=== PATIENT | female | born 2000 | race Caucasian/White ===

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

== ENCOUNTER 2024-01-19 16:03 | Outpatient (CLI) | payer BC, SELFPAY ==
[2024-01-24 12:15] LABS: Mycoplasma genitalium NAA Negative (Negative); Mycoplasma hominis NAA Negative (Negative); Ureaplasma spp NAA Positive (Negative)
[2024-01-24 20:36] LABS: Atopobium vaginae High - 2 Score (.); BVAB2 Low - 0 Score (.); Candida albicans NAA Negative (Negative); Candida glabrata Negative (Negative); Chlamydia Trachomatis NAA Negative (Negative); HSV 1 NAA Negative (Negative); HSV 2 NAA Negative (Negative); Megasphaera 1 Low - 0 Score (.); Neisseria gonorrhoeae NAA Negative (Negative); Trich vag NAA Negative (Negative)
== END 2024-01-19 23:59 | disposition home or self-care (01) ==
LOC: LAB.DROPOF 16:03
PROVIDERS: PCP Urology; Visit Provider Urology
DX: N39.0 Urinary tract infection, site not specified (principal); R31.9 Hematuria, unspecified; A49.3 Mycoplasma infection, unspecified site; R87.5 Abnormal microbiological findings in specimens from female genital organs
CPT/HCPCS: 87086; 87491; 87529; 87563; 87591; 87661; 87798; 87801

== ENCOUNTER 2024-01-22 15:25 | Outpatient (CLI) | payer BC, SELFPAY ==
--- NOTE | 2024-01-22 15:25 | US_ITS ---
FINAL REPORT CLINICAL HISTORY: UTI FINDINGS: ULTRASOUND URINARY BLADDER Limited sonographic images of the urinary bladder were obtained. No bladder masses are identified. Prevoid bladder volume is 353 mL. There is minimal postvoid residual of 16 mL. Bilateral ureteral jets are identified. IMPRESSION: Minimal postvoid residual. Reviewed, Interpreted and Dictated by Noman Kaufman MD Transcribed by Caro Peralta Authenticated and [facility][1]
--- NOTE | 2024-01-22 15:25 | US_ITS ---
FINAL REPORT CLINICAL HISTORY: Recurrent urinary tract infections. FINDINGS: RENAL ULTRASOUND Ultrasound images of the kidneys were obtained. The right kidney measures 10.7 cm in length. It is normal echogenicity. There is no mass, stone or hydronephrosis. The left kidney is suboptimally visualized and measures 9.1 cm in length. It is normal echogenicity. There is no mass, stone or hydronephrosis. Calcified granulomas are seen in the spleen. IMPRESSION: Normal renal ultrasound. Reviewed, Interpreted and Dictated by Noman Kaufman MD Transcribed by Caro Peralta Authenticated and [facility]
== END 2024-01-22 23:59 | disposition home or self-care (01) ==
PROVIDERS: PCP Nurse Practitioner Family; Visit Provider Urology
DX: N39.0 Urinary tract infection, site not specified (principal); R31.9 Hematuria, unspecified
CPT/HCPCS: 76770; 76857

== ENCOUNTER 2024-02-16 15:36 | Outpatient (CLI) | payer BC, SELFPAY ==
[2024-02-16 15:35] LABS: Microscopic, Urine URINE MICROSCOPIC (MICROSCOPIC)
[2024-02-16 15:52] LABS: Appearance,Urine CLEAR (Clear); Bilirubin,Urine Negative (Negative); Blood, Urine 1+ (Negative); Color,Urine YELLOW (Yellow); Glucose,Urine (UA) Negative (Negative); Ketones,Urine Negative (Negative); Leukocyte Esterase,Urine Negative (Negative); Nitrate,Urine Negative (Negative); Protein,Urine 2+ (Negative); Specific Gravity, Urine >= 1.030 (1.005-1.030); Urobilinogen,Urine 0.2 EU/dl (0.2)
[2024-02-16 16:17] LABS: Bacteria,Urine Trace /lpf; RBC,Urine Occasional #/hpf (0-3); WBC,Urine Occasional #/hpf (0-3)
== END 2024-02-16 23:59 | disposition home or self-care (01) ==
LOC: LAB.DROPOF 15:36
PROVIDERS: PCP Urology; Visit Provider Urology
DX: N39.0 Urinary tract infection, site not specified (principal); R31.9 Hematuria, unspecified; R30.0 Dysuria
CPT/HCPCS: 81001; 87086

== ENCOUNTER 2024-04-05 16:22 | Outpatient (CLI) | payer BC, SELFPAY ==
[2024-04-05 16:22] LABS: Microscopic, Urine URINE MICROSCOPIC (MICROSCOPIC)
[2024-04-05 17:43] LABS: Appearance,Urine CLEAR (Clear); Bilirubin,Urine Negative (Negative); Blood, Urine 1+ (Negative); Color,Urine YELLOW (Yellow); Glucose,Urine (UA) Negative (Negative); Ketones,Urine Negative (Negative); Leukocyte Esterase,Urine Negative (Negative); Nitrate,Urine Negative (Negative); PH,Urine 5.5 (5.0-8.5); Protein,Urine TRACE (Negative); Specific Gravity, Urine 1.025 (1.005-1.030); Urobilinogen,Urine 0.2 EU/dl (0.2)
[2024-04-05 18:25] LABS: RBC,Urine Occasional #/hpf (0-3)
[2024-04-05 18:26] LABS: Bacteria,Urine Trace /lpf
== END 2024-04-05 23:59 | disposition home or self-care (01) ==
LOC: LAB.DROPOF 16:22
PROVIDERS: PCP Urology; Visit Provider Urology
DX: N39.0 Urinary tract infection, site not specified (principal); R31.9 Hematuria, unspecified
CPT/HCPCS: 81001

== ENCOUNTER 2025-09-22 13:24 | Emergency (ER) | payer BC, SELFPAY ==
[2025-09-22 13:25] VITALS: BP 103/63; PULSE 75; RESP 20; TEMP 36.6; O2SAT 99
--- NOTE | 2025-09-22 13:27 | ED_ITS ---
Discharge Plan Disposition Patient Disposition: Home, Self-Care Condition: Good Prescriptions Prescriptions: New oxycodone 5 mg tablet 5 mg PO Q8H PRN (Reason: pain) Qty: 7 0RF No Action nitrofurantoin macrocrystal 100 mg capsule 100 mg PO DAILY 30 Days Qty: 30 6RF Rx Instructions: Take one each day of sexual intercourse. Referrals Follow up/Referrals: Jeaneth Addison APRN [Primary Care Provider, Medical] - See instructions Ayush Molina DO [Staff Physician, Orthopedics] - See instructions Activity Restrictions/Add. Instructions Additional Instructions/Restrictions: You were evaluated on an emergency basis. It is very important that you follow- up with your primary care provider and any specialist who we discussed within the next 2 days in order to better assess your health more comprehensively. For example, incidental findings on imaging or laboratory results that were performed today may be discovered, which do not require immediate medical care, but may impact your health in the future. If your symptoms worsen or persist, please return to the emergency department immediately for reassessment. Take all medications as prescribed. In queue for allowing me to participate in your health care, and I hope you feel better soon. 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 Patient states she took 2 ibuprofen prior to arrival. States she is having trouble walking on her leg due to the pain. Related Data Previous Rx's ?Medication ?Instructions ?Recorded nitrofurantoin macrocrystal 100 mg 100 mg PO DAILY 30 days #30 caps 11/01/24 capsule oxycodone 5 mg tablet 5 mg PO Q8H PRN pain #7 tabs 09/22/25 Allergies Allergy/AdvReac Type Severity Reaction Status Date / Time No Known Allergies Allergy Verified 11/01/24 13:01 PFSH <Katty Negro - Last Filed: 09/22/25 14:49> [facility] Disclaimer: The information contained in this section may have been updated after the patient was seen, as this information can be updated by other users. Surgical History History of colonoscopy Social History Smoking Status: Never smoker alcohol intake: never current occupational status: other Travel in the last 8 weeks?: None <Katty Negro - Last Filed: 09/22/25 14:49> ROS Obtained: Yes other Musculoskeletal Musculoskeletal: Reports arthralgias Integumentary/Breasts Skin/Breast: Reports other (Abrasion to left knee) Physical Exam <Katty Negro - Isaiah Filed: 09/22/25 14:49> Narrative Physical exam: General: Awake, aware, in no acute distress HEENT: Normocephalic, no evidence of trauma CV: RRR, no murmurs, rubs, or gallops Pulm: CTA bilaterally with no rhonchi, rales, wheezes ABD: Nontender, no swelling, guarding, or rebound tenderness Psych, appropriate mood and affect Musculoskeletal: Patient reports tenderness on palpation of the left patella. There is a superficial small abrasion to her left knee as well. No obvious deformity. Stations intact with 2+ pulses. Patient with limited range of motion due to pain. General General appearance: alert Respiratory Respiratory exam: Present normal lung sounds bilaterally Cardiovascular Cardiovascular exam: Present regular rate Neurological Exam Neurological exam: Present alert Medical Decision Making <Katty Colon Filed: 09/22/25 14:49> Medical Records Screening: Per USPSTF and CDC recommendations, given the prevalence of disease in our region, it is our hospital?s policy to screen for HIV and viral Hepatitis for all patients aged 18 and over and those with ongoing risk factors. Ruben Inquiry Pt receiving controlled substance: Yes Ruben was queried for this patient: Yes Risks and benefits of using a controlled substance: were discussed with pt by me Vital Signs: 09/22/25 13:25 09/22/25 14:55 Temperature 97.8 F 98.1 F Temperature Source Oral Pulse Rate 71 Pulse Rate [Left Radial] 75 Respiratory Rate 20 20 Blood Pressure 110/60 Blood Pressure [Right Arm] 103/63 L Blood Pressure Mean [Right Arm] 76 02 Sat by Pulse Oximetry 99 Oxygen Delivery Method Room Air Room Air Orders (Tests/Meds): ED MEDICATIONS Discontinued Medications Generic Name Dose Route Start Last Admin Trade Name Mckay PRN Reason Stop Dose Admin Acetaminophen 1,000 mg 09/22/25 13:44 09/22/25 14:07 Acetaminophen 500mg Tab PO 09/22/25 13:45 1,000 mg ONCE ONE Administration ORDERS Category Date Time Status XR knee LT 3V Stat Exams 09/22/25 13:44 Completed Medical Decision Narrative: Initial impression of presenting illness: 25-year-old female presents emergency department with complaints of pain to 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 she reports that she is taken to ibuprofen prior to arrival without relief of symptoms. She reports that she has had difficulty putting weight on her leg since her fall. Differential diagnosis includes but is not limited to: Contusion, hematoma, abrasion, fracture, meniscus injury, ligament injury Patient arrives hemodynamically stable, afebrile, without respiratory distress with vital signs interpreted by myself. Initial physical exam reveals tenderness to palpation of left patella. There is a small superficial abrasion to this area as well. No obvious deformity. Minimal swelling. Sensations intact with 2+ pulses in all extremities. Initial diagnostic plan: Ice pack and Tylenol for pain control, x-rays Results from initial plan were reviewed and interpreted by myself, pertinent positives include: X-rays show a fracture of patient's left patella. Interventions in the ED: Patient was given Tylenol for pain control as well as fitted with a knee immobilizer and given crutches. Patient was made aware of the results and the findings, upon reevaluation patient has remained stable throughout stay, symptoms remained stable. Upon reevaluation patient appears to be resting more comfortably in her bed. Patient is able to fully extend her knee. Patient was able to ambulate in the hallway with crutches. Consultation/discussion with other physicians: Spoke with orthopedic provider Dr. Molina regarding patient's presenting complaint and x-ray findings. He recommended placing patient in a knee immobilizer with crutches. He states patient can weight-bear as tolerated. Disposition: Reviewed finding today's workup with patient informed her that she did fracture her patella. Reviewed Dr. Molina's recommendations. Advised her that she can continue with Tylenol and ibuprofen as needed for pain control. Advised patient that we will also send a prescription for oxycodone to help with any breakthrough pain. Recommended that she contact Dr. Molina's office to sched ule close outpatient follow-up. Instructed her to return to the emergency department any new or worsening symptoms. Patient is agreeable to plan of care. Patient made aware of findings and had a detailed discussion with symptomatic care and return precautions, patient voiced understanding. <Maylin Abdul MD - Last Filed: 09/24/25 16:05> Vital Signs: 09/22/25 13:25 09/22/25 14:55 Temperature 97.8 F 98.1 F Temperature Source Oral Pulse Rate 71 Pulse Rate [Left Radial] 75 Respiratory Rate 20 20 Blood Pressure 110/60 Blood Pressure [Right Arm] 103/63 L Blood Pressure Mean [Right Arm] 76 02 Sat by Pulse Oximetry 99 Oxygen Delivery Method Room Air Room Air Orders (Tests/Meds): ED MEDICATIONS Discontinued Medications Generic Name Dose Route Start Last Admin Trade Name Freq PRN Reason Stop Dose Admin Acetaminophen 1,000 mg 09/22/25 13:44 09/22/25 14:07 Acetaminophen 500mg Tab PO 09/22/25 13:45 1,000 mg ONCE ONE Administration ORDERS Category Date Time Status XR knee LT 3V Stat Exams 09/22/25 13:44 Completed Medical Decision Narrative: Initial impression of presenting illness: 25-year-old female presents emergency department with complaints of pain to 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 she reports that she is taken to ibuprofen prio r to arrival without relief of symptoms. She reports that she has had difficulty putting weight on her leg since her fall. Differential diagnosis includes but is not limited to: Contusion, hematoma, abrasion, fracture, meniscus injury, ligament injury Patient arrives hemodynamically stable, afebrile, without respiratory distress with vital signs interpreted by myself. Initial physical exam reveals tenderness to palpation of left patella. There is a small superficial abrasion to this area as well. No obvious deformity. Minimal swelling. Sensations intact with 2+ pulses in all extremities. Initial diagnostic plan: Ice pack and Tylenol for pain control, x-rays Results from initial plan were reviewed and interpreted by myself, pertinent positives include: X-rays show a fracture of patient's left patella. Interventions in the ED: Patient was given Tylenol for pain control as well as fitted with a knee immobilizer and given crutches. Patient was made aware of the results and the findings, upon reevaluation patient has remained stable throughout stay, symptoms remained stable. Upon reevaluation patient appears to be resting more comfortably in her bed. Patient is able to fully extend her knee. Patient was able to ambulate in the hallway with crutches. Consultation/discussion with other physicians: Spoke with orthopedic provider Dr. Molina regarding patient's presenting complaint and x-ray findings. He recommended placing patient in a knee immobilizer with crutches. He states patient can weight-bear as tolerated. Disposition: Reviewed finding today's workup with patient informed her that she did fracture her patella. Reviewed Dr. Molina's recommendations. Advised her that she can continue with Tylenol and ibuprofen as needed for pain control. Advised patient that we will also send a prescription for oxycodone to help with any breakthrough pain. Recommended that she contact Dr. Molina's office to schedule close outpatient follow-up. Instructed her to return to the emergency department any new or worsening symptoms. Patient is agreeable to plan of care. Patient made aware of findings and had a detailed discussion with symptomatic care and return precautions, patient voiced understanding. I was consulted by the YANA, and we discussed the complexity of problems being addressed. I approved the treatment and management plan for this patient's care in the emergency department, thus performing a substantial portion of the medical decision making. Maylin Abdul MD Critical Care <Katty Negro - Last Filed: 09/22/25 14:49> Critical Care Time Critical Care Time: No
--- NOTE | 2025-09-22 13:44 | XR_ITS ---
FINAL REPORT CLINICAL HISTORY: fall, lt knee pain FINDINGS: AP, lateral and oblique views of the left knee were obtained. There is no prior exam for comparison. There is a comminuted fracture of the patella with no significant displacement. No other fracture identified. The joint space is preserved. The soft tissues are normal. There is a large joint effusion. IMPRESSION: Comminuted patellar fracture with large joint effusion. Reviewed, Interpreted and Dictated by Dena Burris MD Transcribed by Radha Lindsay Authenticated and . [facility]
--- OUTSIDE RECORDS SUMMARY | 2025-09-22 13:54 | XMS_ITS | Clinical Summary ---
Author Organization [facility] [place] [address] Care Team Providers Care Senior Manager [employer] Name Role Phone Unavailable Primary Care Provider Unavailabl e Encounters Date Type Department Care Team Description 09/08/2025 Telephone [place] [address] Jensen Perez MD New Patient Heme (New Pt Referred by: Jeffy Decker DX: Easy bruising, Spontaneous ecchymoses) from Last 3 Months Social History Tobacco Use Types Packs/Day Years Used Date Smoking Tobacco: Never Assessed Comments Unknown Sex and Gender Information Value Date Recorded Sex Assigned at Not on file Legal Sex Female 9:10 PM EDT Gender Identity Not on file Sexual Orientation Not on file Plan of Treatment Upcoming Encounters Date Type Department Care Team (Late st Contact Info) Description 10/11/2025 3:00 PM EST Appointment [facility] [address] [place] [address] Jensen Perez MD [address] [place] [id number] Health Maintenance Due Date Last Done Comments Annual Wellness Exam 2004 HPV (1 - 3-dose series) 2016 DTaP/TDaP/Td (7 - Td or Tdap) 03/03/2022 03/03/2012, 05/08/2005, 08/03/2002, Additional history exists Cervical Cancer Screening 2022 Pap Smear 2022 COVID-19 Vaccine (2024- season) 2025 Influenza Vaccine (#1) 2025 Hepatitis B Vaccine Completed 05/10/2002, 2001, 2001 Meningococcal B Vaccine Aged Out No l onger eligible based on patient's age to complete this topic Pneumococcal Vaccine 0-49 Aged Out No longer eligible based on patient's age to complete this topic Insurance [employer] PPO
--- OUTSIDE RECORDS SUMMARY | 2025-09-22 13:54 | XMS_ITS | Encounter Summary ---
Author Organization [place] [address] Care Team Providers Care Curator [employer] Name Role Phone Unavailable Primary Care Provider Unavailabl e Reason for Visit * Reason Onset Date Comments New Patient Heme 09/08/2025 New Pt Referred by: Jeffy Decker DX: Easy bruising, Spontaneous ecchymoses Encounter Details Date Type Department Care Team (Late st Contact Info) Description 09/08/2025 Telephone [facility] [place] [address] Jensen Perez MD [address] [place] [id number] New Patient Heme (New Pt Referred by: Jeffy Decker DX: Easy bruising, Spontaneous ecchymoses) Social History Tobacco Use Types Packs/Day Years Used Date Smoking Tobacco: Never Assessed Comments Unknown Sex and Gender Information Value Date Recorded Sex Assigned at Not on file Legal Sex Female 9:10 PM EDT Gender Identity Not on file Sexual Orientation Not on file documented as of this encounter Miscellaneous Notes * Telephone Encounter - MontesNiyaSHERRON - 09/08/2025 2:31 PM EST Images from the original note were not included. Referring Provider: Jeffy Decker Referring Diagnosis: Easy bruising, spontaneous ecchymoses Reason for being seen: Referral reviewed by:RB Has the patient had a recent admission to the hospital: No Is an senior qa tester needed: No Any records outside of [facility] (Y/N)? Yes Location in [facility] (CareEverywhere / Media): Media Outside Hospital / Facility: [facility] Confirm recent Consult/Last Office Note received? (Y/N) Yes Recent Labs (Y/N) Yes Spoke with (Name of Person) to verify appt: Kristina, patient Appointment date/time/location: 10/11 3p [facility] Preferred call back number: [phone] WQ notes: Reviewing 09/08/2025 2:22 PM Niya Montes [facility] Chris 10/1109/08/2025 2:38 PM Niya Montes Calling 09/08/2025 2:39 PM NomiFrandy lizamalie Left vm to return call 09/08/2025 2:41 PM Catalina Mosher Sport works for pt 09/08/2025 2:50 PM Doreen Weller documented in this encounter Plan of Treatment Upcoming Encounters Date Type Department Care Team (Late st Contact Info) Description 10/11/2025 3:00 PM EST Appointment [facility] [address] [place] [address] Jensen Perez MD [address] [place] [id number] documented as of this encounter Visit Diagnoses Not on filedocumented in this encounter
[2025-09-22] MEDS: ACETAMINOPHEN 500MG TAB 1000 MG PO (14:07)
[2025-09-22 14:55] VITALS: BP 110/60; PULSE 71; RESP 20; TEMP 36.7; O2SAT 98
== END 2025-09-22 15:04 | disposition home or self-care (01) ==
PROVIDERS: Emergency Provider Student in an Organized Health Care Education/Training Program; PCP Nurse Practitioner Family
DX: S82.042A Displaced comminuted fracture of left patella, initial encounter for closed fracture (principal); W19.XXXA Unspecified fall, initial encounter; Y93.89 Activity, other specified
CPT/HCPCS: 73562; 99283